=== PATIENT | male | born 1990 | race Caucasian/White ===

== ENCOUNTER 2020-05-27 18:53 | Emergency (ER) | payer SELFPAY ==
[2020-05-27] MEDS ORDERED: AMOCLA875 PO (22:38)
== END 2020-05-27 19:30 | disposition left against medical advice (07) ==
LOC: ER 18:53
DX: Z53.21 Procedure and treatment not carried out due to patient leaving prior to being seen by health care provider (principal)

== ENCOUNTER 2020-05-27 20:52 | Emergency (ER) | payer OTHER ==
[~2020-05-27] VITALS: Ht 180.3 cm; Wt 63.5 kg
[2020-05-27] MEDS ORDERED: AMOCLA875 PO (22:38)
== END 2020-05-27 22:51 | disposition home or self-care (01) ==
LOC: ER 20:52
DX: K04.7 Periapical abscess without sinus (principal)
CPT/HCPCS: 99282